=== PATIENT | female | born 1965 | race Caucasian/White ===

== ENCOUNTER 2017-08-12 15:48 | Outpatient (CLI) | payer BC ==
--- NOTE | 2017-08-12 17:02 | MRI ---
EXAM: MRI LUMBAR SPINE WITHOUT CONTRAST 08/12/17 HISTORY: Low back pain with irradiation down the left leg. COMPARISON: None. TECHNIQUE: Lumbar spine MRI is performed without intravenous gadolinium administration. Multisequential, multipl kyle imaging is performed. FINDINGS: There are type I Modic changes at the L5-S1 level. There is preservation of vertebral body height. No fracture. There is mild edema involving the left and right facets. There is symmetric signal intensity of the psoas muscles. There is appropriate signal intensity of th e visualized solid organs. The conus medullaris terminates at the mid L1 level. T12-L1: Adequate disc hydration. No significant central canal stenosis. Foramina are patent. L1-L2: Adequate disc hydration. No significant central canal stenosis. Foramina are patent. L2-L3: Disc desiccation with minimal loss of disc space height. Small left and right paracentral disc bulges. There is mild narrowing of the left subarticular zone. There is partial obscuration of trave rsing left L3 nerve root. Overall, there is minimal central canal stenosis. Neural foramina are paten t. L3-L4: Adequate disc hydration. No significant central canal stenosis. Neural foramina are patent magdalena aterally. L4-L5: Disc desiccation without significant loss of disc space height. No significant central canal s tenosis. Foramina are mildly narrowed bilaterally. L5-S1: Moderate loss of disc space height. There is loss of normal fat signal intensity in the left s ubarticular zone. Differential considerations include disc material versus scar tissue. This abnormal signal does encompass the traversing left S1 nerve root. Questionable left sided hemilaminotomy defe ct. Postcontrast imaging would be beneficial. Overall, there is mild stenosis of the thecal sac. Mode rate bilateral foraminal narrowing. IMPRESSION: Abnormal signal intensity of the left subarticular zone at L5-S1 which may represent postsurgical sca r versus disc material. Postcontrast imaging is recommended. POS: [facility]
--- NOTE | 2017-08-13 09:49 | MRI ---
EXAM: MRI LUMBAR SPINE WITH CONTRAST: HISTORY: Abnormal signal intensity of left subarticular zone at L5-S1. Evaluate for scar versus disk material . CORRELATION: Lumbar spine MRI without contrast 08/12/17. TECHNIQUE: Lumbar spine MRI is performed with IV contrast administration. Multisequential, multiplanar imaging is performed. FINDINGS: At the L5-S1 level, there is enhancement posterior to the disk space, and in the left subarticular zo ne. Enhancement encompasses the traversing S1 nerve root and is favored to be due to scar tissue, ra ther than disk material. There is a left hemilaminotomy defect with enhancing scar tissue at the pos toperative site. IMPRESSION: Enhancing scar tissue in the left subarticular zone, encompassing the traversing left S1 nerve root. POS: [facility]
== END 2017-08-12 15:49 | disposition home or self-care (01) ==
LOC: TBSIIMAG 15:48
PROVIDERS: ATTEND Neurological Surgery
DX: M54.16 Radiculopathy, lumbar region (principal); L90.5 Scar conditions and fibrosis of skin
CPT/HCPCS: 72148; 72149

== ENCOUNTER 2018-08-30 19:18 | Outpatient (CLI) | payer BC ==
--- NOTE | 2018-08-30 20:03 | RAD ---
PA AND LATERAL CHEST: 08/30/18 HISTORY: Acute bronchitis. Heart size and mediastinum are within normal limits. The lungs are clear of infiltrates. Breast impla nts are noted. No bony findings. IMPRESSION: No active intrathoracic disease. POS: [facility]
== END 2018-08-30 19:19 | disposition home or self-care (01) ==
LOC: SCSRAD 19:18
PROVIDERS: ATTEND Physician Assistant
DX: J20.9 Acute bronchitis, unspecified (principal)
CPT/HCPCS: 71046

== ENCOUNTER 2018-09-08 14:18 | Outpatient (CLI) | payer BC ==
--- NOTE | 2018-09-08 14:37 | RAD ---
FRONTAL AND LATERAL IMAGING OF THE CHEST: DATE: 09/10/2018. COMPARISON: 08/30/2018. HISTORY: Left lower lobe pneumonia. FINDINGS: There is no pneumothorax, pleural fluid, focal consolidation, or alveolar edema. Heart and mediastin al contours are stable. No acute findings. IMPRESSION: No acute findings. POS: [place]
== END 2018-09-08 14:19 | disposition home or self-care (01) ==
LOC: BICRAD 14:18
PROVIDERS: ATTEND Physician Assistant
DX: J18.1 Lobar pneumonia, unspecified organism (principal)
CPT/HCPCS: 71046

== ENCOUNTER 2021-06-17 09:21 | Outpatient (CLI) | payer BC | END 2021-06-17 09:22 | disposition home or self-care (01) | LOC: BICMAMMO 09:21 | PROVIDERS: ATTEND Obstetrics & Gynecology | DX: Z12.31 Encounter for screening mammogram for malignant neoplasm of breast (principal); Z98.82 Breast implant status | CPT/HCPCS: 77063; 77067 ==

== ENCOUNTER 2022-12-03 14:43 | Outpatient (CLI) | payer BC | END 2022-12-03 14:44 | disposition home or self-care (01) | LOC: BICMAMMO 14:43 | PROVIDERS: ATTEND Obstetrics & Gynecology | DX: Z12.31 Encounter for screening mammogram for malignant neoplasm of breast (principal); Z98.82 Breast implant status | CPT/HCPCS: 77063; 77067 ==

== ENCOUNTER 2023-09-08 08:01 | Outpatient (CLI) | payer BC | END 2023-09-08 08:02 | disposition home or self-care (01) | LOC: SCSMRI 08:01 | PROVIDERS: ATTEND Neurological Surgery | DX: M54.16 Radiculopathy, lumbar region (principal); M51.37 Other intervertebral disc degeneration, lumbosacral region | CPT/HCPCS: 72148 ==

== ENCOUNTER 2023-09-11 12:04 | Inpatient (IN) | payer OTHER, BC ==
[2023-09-11] MEDS ORDERED: TETANUS, DIPHTHERIA TOX,ADULT (TDVAX) 0.5 ML VIAL IM ONE (13:50)
[2023-09-11] MEDS ORDERED: Acetaminophen 325 MG TAB PO PRN (13:50)
[2023-09-11] MEDS ORDERED: Ondansetron PF 4 MG/2 ML Vial IVP PRN (13:50)
[2023-09-11] MEDS ORDERED: traMADol HCl 50 MG TAB PO PRN (13:50)
[2023-09-11] MEDS ORDERED: Communication Order-Pharmacy FS SCH (14:00)
[2023-09-11] MEDS: HYDROcodone/Acetaminophen 10/325 mg Tablet PO PRN ×2 (16:07→20:17)
[2023-09-11] MEDS: traMADol HCl 50 MG TAB PO PRN ×2 (17:18→22:33)
[2023-09-11 17:21] VITALS: BMI 20.5
[2023-09-12] MEDS: HYDROcodone/Acetaminophen 10/325 mg Tablet PO PRN ×3 (02:57→21:10)
[2023-09-12 06:16] LABS: #Monocytes 0.5 thou/uL (0.11-0.59); #Neutrophils 5.8 thou/uL (1.40-6.50); %Basophils 0.5 % (0.0-1.0); %Eosinophils 0.1 % (0.0-10.0); %Lymphocytes 23.1 % (21.0-51.0); %Monocytes 6.2 % (0.0-10.0); %Neutrophils 69.6 % (42.0-75.0); Hemoglobin 12.2 g/dL (12.0-16.0); Mean Corpuscular Hemoglobin 29.2 pg (27.0-31.0); Mean Corpuscular Volume 88.5 fl (78.0-98.0); Mean Platelet Volume 10.6 fL (7.4-10.4); Platelet Count 235 10x3/uL (130-400); RBC Distribution Width 12.9 % (11.5-14.5); Red Blood Cell (RBC) Count 4.18 mill/uL (4.20-5.40); White Blood Cell (WBC) Count 8.4 10x3/uL (4.8-10.8)
[2023-09-12] MEDS ORDERED: Polyethylene Glycol 3350 17 GM Packet PO SCH (08:45)
[2023-09-12] MEDS ORDERED: Senokot S 8.6-50 MG TAB PO SCH (08:45)
[2023-09-12] MEDS: traMADol HCl 50 MG TAB PO PRN ×3 (09:21→22:12)
[2023-09-12] MEDS: Senokot S 8.6-50 MG TAB PO SCH (21:10)
[2023-09-13] MEDS: traMADol HCl 50 MG TAB PO PRN ×2 (03:53→19:43)
[2023-09-13] MEDS ORDERED: Ropivacaine 2% HCl/PF (20 MG/10 ML VIAL) ONE (08:00)
[2023-09-13] MEDS ORDERED: Ropivacaine 0.5% HCl/PF (150 MG/30 ML VIAL) ONE (08:00)
[2023-09-13] MEDS ORDERED: Vancomycin 1 GM/200 ML (FROZEN) BAG ONE (08:21)
[2023-09-13] MEDS ORDERED: Sodium Chloride 0.9% 100 ML ONE ×2 (08:21→09:22)
[2023-09-13] MEDS ORDERED: Tranexamic Acid 1,000 MG/10 ML VIAL ONE (08:21)
[2023-09-13] MEDS ORDERED: Midazolam HCl 2 mg/2 ml Vial ONE (08:47)
[2023-09-13] MEDS ORDERED: fentaNYL 50 mcg/mL 1 mL Vial ONE (08:47)
[2023-09-13] MEDS ORDERED: Polyethylene Glycol 3350 17 GM Packet PO SCH (09:00)
[2023-09-13] MEDS ORDERED: fentaNYL 50 mcg/mL 1 mL Vial SLOW IVP PRN (09:18)
[2023-09-13] MEDS ORDERED: Promethazine HCl 25 MG/ML VIAL IM PRN (09:18)
[2023-09-13] MEDS ORDERED: Acetaminophen 325 MG TAB PO PRN (09:18)
[2023-09-13] MEDS ORDERED: diphenhydrAMINE 25 MG CAP PO PRN (09:18)
[2023-09-13] MEDS ORDERED: Zolpidem Tartrate 5 MG TAB PO PRN (09:18)
[2023-09-13] MEDS ORDERED: Ondansetron PF 4 MG/2 ML Vial IVP PRN (09:18)
[2023-09-13] MEDS ORDERED: Propofol 1,000 MG/100 ML VIAL IV ONE (09:20)
[2023-09-13] MEDS ORDERED: CEFAZOLIN 2 GM VIAL ONE (09:22)
[2023-09-13] MEDS ORDERED: Vancomycin (BATCH) 1.5 GM in Premix 1 BAG IVPB ONE (09:30)
[2023-09-13] MEDS ORDERED: CEFAZOLIN 2 GM in Sodium Chloride 0.9% 100 ML IVPB SCH (09:30)
[2023-09-13] MEDS ORDERED: Tranexamic Acid 1,000 MG/10 ML VIAL IVP ONE (09:30)
[2023-09-13] MEDS ORDERED: ePHEDrine Sulfate 50 MG/10 ML VIAL ONE (10:06)
[2023-09-13] MEDS ORDERED: Bupivacaine PF 0.5% 30 ML VIAL ONE (10:10)
[2023-09-13] MEDS ORDERED: Ondansetron PF 4 MG/2 ML Vial ONE (11:19)
[2023-09-13] MEDS: Ketorolac Tromethamine 30 MG/ML VIAL IVP SCH ×2 (13:10→20:14)
[2023-09-13] MEDS: Senokot S 8.6-50 MG TAB PO SCH ×2 (13:39→19:43)
[2023-09-13] MEDS: HYDROcodone/Acetaminophen 10/325 mg Tablet PO PRN ×3 (14:34→23:45)
[2023-09-13] MEDS: CEFAZOLIN 2 GM in Sodium Chloride 0.9% 100 ML IVPB SCH (16:56)
[2023-09-13] MEDS: Aspirin 81 mg Enteric Coated Tablet PO SCH (19:44)
[2023-09-13] MEDS ORDERED: Senokot S 8.6-50 MG TAB PO SCH (21:00)
[2023-09-13] MEDS ORDERED: Ferrous Gluconate 324 MG TAB PO SCH (21:00)
[2023-09-14] MEDS: CEFAZOLIN 2 GM in Sodium Chloride 0.9% 100 ML IVPB SCH (01:39)
[2023-09-14] MEDS: traMADol HCl 50 MG TAB PO PRN ×2 (03:29→09:33)
[2023-09-14] MEDS: Ketorolac Tromethamine 30 MG/ML VIAL IVP SCH ×2 (03:45→11:35)
[2023-09-14 05:30] LABS: Hematocrit 31.6 % (36.0-47.0); Hemoglobin 10.3 g/dL (12.0-16.0); Mean Corpuscular HGB CONC 32.6 g/dL (32.0-36.0); Mean Corpuscular Hemoglobin 28.9 pg (27.0-31.0); Mean Corpuscular Volume 88.8 fl (78.0-98.0); Mean Platelet Volume 10.6 fL (7.4-10.4); Platelet Count 113 10x3/uL (130-400); RBC Distribution Width 12.8 % (11.5-14.5); Red Blood Cell (RBC) Count 3.56 mill/uL (4.20-5.40); White Blood Cell (WBC) Count 6.5 10x3/uL (4.8-10.8)
[2023-09-14] MEDS ORDERED: Multivitamin W/ Minerals 1 TAB PO SCH (09:00)
[2023-09-14] MEDS: Aspirin 81 mg Enteric Coated Tablet PO SCH (09:28)
[2023-09-14] MEDS: Senokot S 8.6-50 MG TAB PO SCH (09:29)
[2023-09-14 12:04] VITALS: BP 104/66; TEMP 99.2
[2023-09-14] MEDS ORDERED: Ondansetron ODT 8 MG TAB SL SCH (15:00)
== END 2023-09-14 12:19 | disposition home or self-care (01) | DRG 522 ==
LOC: SURG A 12:04
PROVIDERS: ADMIT Orthopaedic Surgery; ATTEND Orthopaedic Surgery
PROC: 0SRB0JZ Replacement of Left Hip Joint with Synthetic Substitute, Open Approach (ICD-10-PCS; principal; 2023-09-13)
DX: S72.012A Unspecified intracapsular fracture of left femur, initial encounter for closed fracture (principal); W01.0XXA Fall on same level from slipping, tripping and stumbling without subsequent striking against object, initial encounter; Z98.890 Other specified postprocedural states
CPT/HCPCS: 36415; 85025; 85027; C1776; J1650; J1885; J2250; J2405; J2704; J2795; J3010; J3370-JW; J3490; S0020

== ENCOUNTER 2023-09-20 15:39 | Emergency (ER) | payer BC ==
[2023-09-20] MEDS ORDERED: HYDROcodone/Acetaminophen 10/325 mg Tablet ONE (16:53)
[2023-09-20 16:58] LABS: SARS-CoV-2 NAA Rapid Test Not Detected (NotDetected)
== END 2023-09-20 16:04 | disposition home or self-care (01) ==
LOC: ERS 15:39
DX: R22.42 Localized swelling, mass and lump, left lower limb (principal); R05.1 Acute cough
CPT/HCPCS: 71045; U0002

== ENCOUNTER 2023-12-08 10:01 | Outpatient (CLI) | payer BC | END 2023-12-08 10:02 | disposition home or self-care (01) | LOC: BICMAMMO 10:01 | PROVIDERS: ATTEND Family Medicine | DX: Z12.31 Encounter for screening mammogram for malignant neoplasm of breast (principal); Z98.82 Breast implant status | CPT/HCPCS: 77063; 77067 ==